=== PATIENT | female | born 1955 | race Caucasian/White ===

== ENCOUNTER 2017-12-02 05:57 | Observation (INO) | payer OTHER ==
[~2017-12-02 05:57] MED LIST: Buffered Lidocaine 0.9% SYRIN* 5 ML/SYR SYRINGE INTRADERM ONE
[2017-12-02] MEDS ORDERED: Famotidine IV* 10 MG/ML 2 ML (20 mg) IV ONE (06:00)
[2017-12-02] MEDS ORDERED: Dexamethasone IV* 4 MG/ML 1 ML (4 MG) IV SLOW PU ONE (06:00)
[2017-12-02] MEDS ORDERED: Famotidine IV* 10 MG/ML 2 ML (20 mg) ONE (06:06)
[2017-12-02] MEDS ORDERED: Dexamethasone IV* 4 MG/ML 1 ML (4 MG) ONE (06:07)
[2017-12-02] MEDS ORDERED: Clindamycin 900 MG IVPREMIX(* 900 MG/50 ML SDV IV ONE (06:07)
[2017-12-02] MEDS ORDERED: Buffered Lidocaine 0.9% SYRIN* 5 ML/SYR SYRINGE ONE (06:07)
[2017-12-02] MEDS ORDERED: Thrombin 5,000 UNITS* 1 APPLIC KIT - topical use - TOPICAL ONE (07:15)
[2017-12-02] MEDS ORDERED: Bacitracin IV* 50,000 UNITS INJ ONE (07:15)
[2017-12-02] MEDS ORDERED: Lidocaine 1% MPF wEPI 200,000* 30 ML SDV ONE (07:15)
[2017-12-02] MEDS ORDERED: fentaNYL* 50 MCG/ML 5 ML VIAL (250 MCG VIAL) ONE (07:16)
[2017-12-02] MEDS ORDERED: Midazolam* 1 MG/ML 10 ML VIAL (10 MG) ONE (07:16)
[2017-12-02] MEDS ORDERED: Atracurium* 10 MG/ML 10 ML VIAL ONE (07:16)
[2017-12-02] MEDS ORDERED: EPHEDrine (Pressors)* 50 MG/ML VIAL ONE ×2 (07:17→07:56)
[2017-12-02] MEDS ORDERED: Ondansetron INJ* 2 MG/ML VIAL ONE (07:56)
[2017-12-02] MEDS ORDERED: Propofol* 10 MG/ML 20 ML BTL IV PUSH ONE (07:56)
[2017-12-02] MEDS ORDERED: fentaNYL* 50 MCG/ML 2 ML VIAL (100 MCG VIAL) ONE ×2 (08:06→09:51)
[2017-12-02] MEDS ORDERED: DiMENhydriNATE IV* 50 MG/ML VIAL IV PUSH PRN (08:26)
[2017-12-02] MEDS ORDERED: HYDROmorphone INJ* 1 MG/ML CARPUJECT SYRINGE IV PRN (08:26)
[2017-12-02] MEDS ORDERED: Ondansetron INJ* 2 MG/ML VIAL IV PRN ×2 (08:26→08:45)
[2017-12-02] MEDS ORDERED: Naloxone* 0.4 MG/ML 1 ML VIAL IV PRN (08:26)
[2017-12-02] MEDS ORDERED: Acetaminophen TAB* 325 MG PO PRN (08:45)
[2017-12-02] MEDS ORDERED: Magnesium Hydroxide LIQ* 30 ML UDC PO PRN (08:45)
[2017-12-02] MEDS ORDERED: Albuterol HFA INHALER* 8 gm MDI INH PRN (08:49)
[2017-12-02] MEDS ORDERED: Glycopyrrolate IV* 0.2 MG/ML 1 ML VIAL ONE (09:07)
[2017-12-02] MEDS ORDERED: Neostigmine Methylsulfate* 2 MG/2 ML SYRINGE ONE (09:07)
[2017-12-02] MEDS: fentaNYL* 50 MCG/ML 2 ML VIAL (100 MCG VIAL) IV PRN ×3 (09:52→10:44)
[2017-12-02] MEDS ORDERED: HYDROcodone/ACETAMIN 5-325 MG* 1 TAB ONE (09:59)
[2017-12-02] MEDS: HYDROcodone/ACETAMIN 5-325 MG* 1 TAB PO PRN ×4 (10:02→22:13)
--- NOTE | 2017-12-02 10:30 | RAD ---
HISTORY: Posterior cervical discectomy COMPARISONS: September 23, 2017 VIEWS: 1, portable intraoperative view of the cervical spine at 8:14 AM FINDINGS: A single portable crosstable lateral view of the cervical spinous submitted dated December 02, 2017 at 8:14 AM. A metallic probe is noted opposite of C5-C6, counting from C2. IMPRESSION: LIMITED PORTABLE VIEW OF THE CERVICAL SPINE FOR LOCALIZATION DURING SPINAL SURGERY
[2017-12-02] MEDS: CMCS Venlafaxine TAB (NF) 25 MG TAB PO SCH ×2 (12:40→20:46)
[2017-12-02] MEDS: Insulin LISPRO* 1 UNITS UNIT SUBCUT SCH ×2 (18:01→20:46)
[2017-12-03] MEDS: HYDROcodone/ACETAMIN 5-325 MG* 1 TAB PO PRN ×2 (02:22→07:39)
[2017-12-03] MEDS: CMCS Venlafaxine TAB (NF) 25 MG TAB PO SCH (07:39)
[2017-12-03 07:54] VITALS: BP 122/68
--- NOTE | 2017-12-03 08:25 | PN ---
Progress Note - Progress Note Date of Service: 12/03/17 SOAP: Subjective: [S/p posterior cervical foraminotomy C6-7 on the left, POD #1. Patient complains of mild posterior neck incisional soreness. Denies headache and nausea. Eating and drinking without difficulty. Ambulating well. Pre-op LUE symptoms improved. ] Objective: [ Vital Signs: Temp Pulse Resp BP Pulse Ox 98.1 F 62 18 122/68 96 12/03/17 07:36 12/03/17 07:36 12/03/17 07:39 12/03/17 07:36 12/03/17 07:36 General: Alert and without acute pain. 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 Extremities: Full ROM Incision: Intact with hanna. No swelling or erythema. Drain discontinued today. Wound output 12/02/17 12/02/17 12/02/17 12:30 16:00 22:15 Output, KERRY #1 20 10 10 12/03/17 12/03/17 02:00 06:00 Output, KERRY #1 8 7 ] Assessment: [Satisfactory post-op course. Pain well controlled. ] Plan: [1. Discharge home today. 2. Discharge instructions discussed with the patient and provided. ]
[2017-12-03] MEDS: Insulin LISPRO* 1 UNITS UNIT SUBCUT SCH (08:58)
== END 2017-12-03 10:45 | disposition home or self-care (01) ==
LOC: OR 05:57 → SSU 08:45
PROVIDERS: ADMIT Neurological Surgery; ATTEND Neurological Surgery
PROC: 00NW0ZZ Release Cervical Spinal Cord, Open Approach (ICD-10-PCS; principal; 2017-12-02 07:45)
DX: M50.123 Cervical disc disorder at C6-C7 level with radiculopathy (principal); M47.892 Other spondylosis, cervical region
CPT/HCPCS: 72020; 94760; 96374; 96375; A9270-GY; G0378; J1100; J2001; J2250; J2405; J2704; J3010

== ENCOUNTER → 2018-09-23 17:27 | Emergency (ER) | payer OTHER ==
[~2018-09-23 17:27] MED LIST changes: +Acetaminophen TAB* 325 MG PO ONE; +Benzoin Compound STICK ONE; +Benzoin Compound STICK TOPICAL ONE; -Buffered Lidocaine 0.9% SYRIN* 5 ML/SYR SYRINGE INTRADERM ONE; +Cephalexin CAP* 500 MG PO ONE; +Lidocaine 2% PF * 5 ML VIAL INJ ONE
[2018-09-23 18:26] VITALS: BP 139/92
--- NOTE | 2018-09-23 20:21 | UC ---
Laceration HPI - HPI Summary HPI Summary: The patient is a 62-year-old female who presents here for evaluation of a nasal duration. Laceration occurred when she closed the hatchback of her car and hit her nose. She had no epistaxis. Mild headache and mild lateral neck pain. Her tetanus shot is up-to-date. - History Of Current Complaint Chief Complaint: UCHeadInjury Stated Complaint: LACERATION ON NOSE Time Seen by Provider: 09/23/18 19:04 Hx Obtained From: Patient Hx Last Menstrual Period: post Laceration Location: Face Mechanism Of Injury: Blunt Trauma Onset/Duration: Sudden Onset Pain Intensity: 6 Pain Scale Used: 0-10 Numeric - Allergies/Home Medications Allergies/Adverse Reactions: Allergies Allergy/AdvReac Type Severity Reaction Status Date / Time iohexol Allergy Severe n/v, harsh Verified 09/23/18 18:27 hives, swelling Penicillins Allergy Severe hives , Verified 09/23/18 18:27 swelling PMH/Surg Hx/FS Hx/Imm Hx Previously Healthy: Yes Endocrine History: Diabetes Cardiovascular History: Hypertension - Surgical History Surgical History: Yes Surgery Procedure, Year, and Place: tubal 1993;. Nov 2017 chip removed from spine - Social History Alcohol Use: None Substance Use Type: None Smoking Status (MU): Never Smoked Tobacco - Immunization History Most Recent Influenza Vaccination: 2017 Most Recent Tetanus Shot: 2017 Most Recent Pneumonia Vaccination: has had Review of Systems Constitutional: Negative Skin: Negative Eyes: Negative ENT: Negative Respiratory: Negative Cardiovascular: Negative Gastrointestinal: Negative Genitourinary: Negative Motor: Negative Neurovascular: Negative Musculoskeletal: Negative Neurological: Negative Psychological: Negative All Other Systems Reviewed And Are Negative: Yes Physical Exam Triage Information Reviewed: Yes Appearance: Well-Appearing, No Pain Distress, Well-Nourished Vital Signs: Initial Vital Signs Temp 97.3 F 09/23/18 18:18 Pulse 91 09/23/18 18:18 Resp 15 09/23/18 18:18 BP 139/92 09/23/18 18:18 Pulse Ox 96 09/23/18 18:18 Vital Signs Reviewed: Yes Eyes: Positive: Conjunctiva Clear ENT: Positive: Hearing grossly normal. Negative: Nasal drainage, TMs normal, Trismus, Muffled voice, Uvula midline Neck: Positive: Supple, Nontender Respiratory: Positive: Lungs clear, Normal breath sounds, No respiratory distress Cardiovascular: Positive: RRR, No Murmur Musculoskeletal: Positive: ROM Intact, No Edema Neurological: Positive: Alert Psychological Exam: Normal Laceration Repair - Laceration Repair 1 Description: Linear Laceration Size After Repair: Length (cm) - 2.7, Width (mm) - 1, Depth (mm) - 2 Closure Material: Skin Adhesive, SteriStrips Diagnostics - Radiology No standard instances Radiology Interpretation Completed By: ED Physician Summary of Radiographic Findings: ? nondisplaced nasal bone fx Laceration Course/Dx - Course/Dx Course Of Treatment: Because the patient is A&Ox3, has no focal neurologic findings, no midline c-spine tenderness, no evidence of intoxication and no painful distracting injuries there is no need to obtain radiographic studies to evaluate the C-spinie. Patient declines sutures. - Differential Dx - Laceration/Wound Provider Diagnoses: nasal laceration. ? nasal bone fracture (nondisplaced) Discharge - Sign-Out/Discharge Documenting (check all that apply): Patient Departure All imaging exams completed and their final reports reviewed: No - Discharge Plan Condition: Stable Disposition: HOME Prescriptions: Cephalexin CAP* [Keflex CAP*] 500 mg PO 20 #28 cap Patient Education Materials: Skin Adhesive Care (ED), Steristrips (ED) Forms: *Work Release Referrals: Aiyana Dunlap PA [Primary Care Provider] - If Needed Chuy Gustafson MD [Medical Doctor] - If Needed Additional Instructions: call late morning for the official XR reading ([phone]) If the radiologist suspects a hairline fracture of the nasal bone I suggest you see Sj Mann in followup - Billing Disposition and Condition Condition: STABLE Disposition: Home Images Head: 1 - tender 2 - tender 3 - "U" shaped lac
--- NOTE | 2018-09-24 08:38 | UC ---
- Progress Note Progress Note: Patient Name: OSWALDO COTTO Medical Record#: [id number] Ordering Physician: Alex Raphael MD Acct.#: [id number] : 1955 Age: 62 Sex: F Location: [facility] Exam Date: 09/23/181909 ADM Status: [facility] ER Order Information: NASAL BONES 3+ VWS Accession Number: [id number] CPT: 42158 INDICATION: Nasal bone trauma. TECHNIQUE: 3 views of the nasal bones were obtained including lateral and Salguero views. FINDINGS: There is a soft tissue defect and swelling anterior to the nasal bones. There is a faintly visualized transverse line present in the distal portion of the nasal bones possibly representing a nondisplaced fracture. The nasal septum is midline. IMPRESSION: 1. SOFT TISSUE INJURY. 2. POSSIBLE NONDISPLACED FRACTURE OF THE NASAL BONES. R0 Preliminary Imaging Read NO DISCREPANCY <Electronically signed by Taurus Gupta MD in OV> 09/24/18744 Dictated By: Taurus Gupta MD Dictated Date/Time: 09/24/18744 Transcribed Date/Time: 09/24/18741 Copy to: CC:Aiyana MILLER; Alex Raphael MD Imaging - [facility] Imaging - [facility] [address] [place] [address] ph ([phone]) ph ([phone]) ph ([phone]) This report is only to be considered final once signed by the Provider(s) as displayed in the "<Electronically Signed by >" field (s). Absence of a signature indicates the report is in a draft status and still needs to be finalized. In the event this document was created by someone other than the signing Provider, the individual initiating the document will be listed in the "Entered by:" or "Dictated by:" avalos. 1 of 1 Discharge - Sign-Out/Discharge Documenting (check all that apply): Post-Discharge Follow Up All imaging exams completed and their final reports reviewed: Yes - Discharge Plan Condition: Stable Disposition: HOME Prescriptions: Cephalexin CAP* [Keflex CAP*] 500 mg PO QID #20 cap Patient Education Materials: Skin Adhesive Care (ED), Steristrips (ED) Forms: *Work Release Referrals: Aiyana Dunlap PA [Primary Care Provider] - If Needed Chuy Gustafson MD [Medical Doctor] - If Needed Additional Instructions: call late morning for the official XR reading ([phone]) If the radiologist suspects a hairline fracture of the nasal bone I suggest you see Sj Mann in followup - Billing Disposition and Condition Condition: STABLE Disposition: Home
== END | disposition home or self-care (01) ==
LOC: UCEAST 17:27
DX: S01.21XA Laceration without foreign body of nose, initial encounter (principal); W22.8XXA Striking against or struck by other objects, initial encounter; Y92.9 Unspecified place or not applicable; Z88.0 Allergy status to penicillin; Z91.041 Radiographic dye allergy status
CPT/HCPCS: 12011; 70160; 99212; A9270-GY; G0463